=== PATIENT | female | born 1935 | race Caucasian/White ===

== ENCOUNTER 2016-09-21 07:21 | Day surgery (SDC) | payer MEDICARE, BC ==
--- OUTSIDE RECORDS SUMMARY | 2016-09-21 07:25 | XMS REPORT | Continuity of Care Document ---
:1935 Author Organization [facility] ([facility]) Address [address] [place] [address] Phone [phone] Care Team Providers Name Role Phone Jesse Rinaldi Primary Care Provider [phone] Source Comments This disclosure is being made pursuant to the Care Everywhere program, applicable federal and state laws, and may not contain all informaitonavailable regarding this patient.[facility] ([facility]) Active Allergies and Adverse Reactions Allergen Noted Date Severity Reactions Comments Celecoxib 01/18/2011 Unknown Cimetidine 01/18/2011 Unknown Ketorolac Tromethamine 01/18/2011 Unknown Levofloxacin 01/18/2011 Unknown Omeprazole Magnesium 01/18/2011 Unknown Rabeprazole 01/18/2011 Unknown Rofecoxib 01/18/2011 Unknown Sulfa (Sulfonamide Antibiotics) 01/18/2011 Rash Valdecoxib 01/18/2011 Unknown Current Medications Prescription Sig. Disp. Refills Start Date End Date Status alprazolam 0.5 mg Take 0.5 mg by Active dissolvable tablet mouth 4 times daily as needed. Calcium-Cholecalciferol, Take 1 Tab by Active D3, (CALCIUM 600 + D,3,) mouth daily. 600 mg(1,500mg) -200 unit Tab atorvastatin (LIPITOR) 10 Take 10 mg by Active mg tablet mouth daily. Vit C-Vit Take 1 Cap by Active I-Vyowty-Fmc-OM-3 mouth daily. (OCUVITE) 196-11-4-150 fd-jkwr-ky-mg Cap pantoprazole 40 mg EC Take 20 mg by Active tablet mouth daily. acetaminophen (TYLENOL Take 1,000 mg by Active EXTRA STRENGTH) 500 mg mouth every 6 tablet hours as needed. ascorbic acid (VITAMIN C) Take 250 mg by Active 250 mg tablet mouth 2 times daily. Active Problems Problem Noted Date UTI (lower urinary tract infection) 01/20/2011 Social History Tobacco Use Types Packs/Day Years Used Date Former Smoker Cigarettes Smokeless Tobacco: Never Used Alcohol Use Drinks/Week oz/Week Comments Yes Rare alcohol intake. Last Filed Vital Signs Vital Sign Reading Time Taken Blood Pressure 125/58 09/27/2012 1:51 PM CDT Pulse 72 09/27/2012 1:51 PM CDT Temperature 36.6 C (97.8 F) 09/27/2012 1:51 PM CDT Respiratory Rate 18 09/27/2012 1:51 PM CDT Height 1.575 m (5' 2") 09/27/2012 1:51 PM CDT Weight 65.772 kg (145 lb) 09/27/2012 1:51 PM CDT Body Mass Index 26.51 09/27/2012 1:51 PM CDT Oxygen Saturation 97% 03/22/2012 1:00 PM CDT Plan of Care Health Maintenance Due Date Last Done Comments Hepatitis B Vaccine (1 of 3 - Primary Series) 1935 Tdap Vaccine 1945 Lipid Disorder Screening 1952 Td Vaccine 1953 Colonoscopy 08/05/1984 Zoster Vaccine 1994 Osteoporosis Screening (DXA Bone Density) 08/07/1999 Pneumococcal Vaccine (1 of 2 - PCV13) 08/07/1999 Influenza Vaccine: Seasonal (#1) 12/29/2015 Results from Last 3 Months Not on file
--- NOTE | 2016-09-21 07:53 | OR ---
Anesthesia Pre Procedure Eval Pre Procedure Evaluation: Last Vital Signs Temp 36.3 C L 09/21/16 07:38 Pulse 67 09/21/16 07:38 Resp 16 09/21/16 07:38 BP 123/82 09/21/16 07:38 Pulse Ox 94 09/21/16 07:38 PRE PROCEDURE EVALUATION:: DATE: 09/21/2016 TIME: 12 26 INDICATIONS: Radicular low back pain. Multilevel bulging disc PAST MEDICAL HISTORY: Previous epidural steroid injection in March 2016. That injection helped the patient's pain up until about 2 weeks ago. EXAM: Lungs clear and equal. Heart rate regular. Patient complains of radicular back pain with pain radiating into her right hip and down into her right leg. She has no left-sided involvement. ASSESSMENT OF MEDICAL STATUS: Procedure risks and benefits were explained to and accepted by the patient. No contraindication epidural injection. PLANNED PROCEDURE : Fluoroscopy-guided epidural injection at L5-S1 Home Medications: HOME MEDICATIONS Atorvastatin Calcium [Lipitor] 10 mg PO DAILY 08/03/12 [Last Taken 12/28/15] Beta-Carotene(A) W-C , E/Min [Ocuvite] 1 tab PO DAILY 08/03/12 [Last Taken Unknown] Dexlansoprazole [Dexilant] 60 mg PO DAILY 06/09/15 [Last Taken 12/29/15] Simethicone [Phazyme] 180 mg PO PRN PRN 06/09/15 [Last Taken Unknown] ALPRAZolam [Xanax] 0.25 mg PO QID PRN 12/22/15 [Last Taken Unknown] Acetaminophen [Tylenol] 1,000 mg PO Q6H PRN 12/22/15 [Last Taken Unknown] Ascorbic Acid [Vitamin C] 500 mg PO DAILY 12/22/15 [Last Taken 12/28/15] Calcium Carbonate/Vitamin D3 [Calcium 600 + Vit D3 Caplet] 1 each PO TID [Last Taken 12/28/15]
[2016-09-21] MEDS ORDERED: IOPAMIDOL 20 ML VIAL IJ ONE (08:09)
[2016-09-21] MEDS ORDERED: DEXAMETHASONE SOD PHOSPHATE 10 MG/ML VIAL IJ ONE (08:10)
[2016-09-21] MEDS ORDERED: LIDOCAINE HCL/PF 5 ML VIAL IJ ONE (08:10)
--- NOTE | 2016-09-21 08:20 | OR ---
Anesthesia Procedure Note - Anesthesia Procedure Note Narrative: Vital Signs - Last Taken Temp 36.3 C L 09/21/16 07:38 Pulse 67 09/21/16 07:38 Resp 16 09/21/16 07:38 BP 123/82 09/21/16 07:38 Pulse Ox 94 09/21/16 07:38 09/21/16 08:15 ANESTHESIA PROCEDURE NOTE Date of Procedure: 09/21/2016 Time of procedure: 804. Performed by: Arnulfo Carrasco CRNA Creative Services Intern: None. Preprocedure diagnosis: Radicular low back pain bulging disc at L5-S1. Post procedure diagnosis: Same. Procedure: Epidural Steroid Injection at L5-S1. Indications: Radicular low back pain. Findings: See below. Details of the procedure: The patient was brought back to operating room #4. The patient was then placed in the prone position. Back was prepped with DuraPrep. Patient was then draped in sterile fashion. Lidocaine 1% was infiltrated to the skin and subcutaneous tissues at the level of the L5-S1 interspace. The epidural space was identified using a 20-gauge Tuohy needle with [id number] technique and fluoroscopic guidance. A total of 3 mL of Isovue-200 contrast dye was injected to confirm needle placement in first the lateral and then AP positions. Dexamethasone 10 mg + 5 mL of 1% preservative-free lidocaine was administered to the epidural space after negative aspiration for blood and CSF. The Tuohy needle was removed intact. A Band-Aid was applied to the patient's back. The patient was then placed in a supine position for 5 minutes before returning to the ambulatory surgical unit. A total of 34.1 seconds of fluoroscopy time was used along with 12.11 m/gy or. EBL: Minimal. Fluids: N/A. Specimen: N/A. Post procedure condition: The patient tolerated the procedure well. No complications were noted. Thank you for this consultation. Arnulfo Carrasco CRNA
[2016-09-21 08:55] VITALS: BP 142/75
== END 2016-09-21 07:22 | disposition home or self-care (01) ==
LOC: SUR 07:21
PROVIDERS: ATTEND Allergy & Immunology
PROC: 3E0S3BZ Introduction of Anesthetic Agent into Epidural Space, Percutaneous Approach (ICD-10-PCS; 2016-09-21)
PROC: 3E0S33Z Introduction of Anti-inflammatory into Epidural Space, Percutaneous Approach (ICD-10-PCS; principal; 2016-09-21 08:00)
DX: M51.27 Other intervertebral disc displacement, lumbosacral region (principal); Z68.26 Body mass index [BMI] 26.0-26.9, adult

== ENCOUNTER 2016-12-28 07:22 | Day surgery (SDC) | payer MEDICARE, BC ==
--- NOTE | 2016-12-28 07:53 | OR ---
Anesthesia Pre Procedure Eval Date of Service: 12/28/16 Pre Procedure Evaluation: Last Vital Signs Temp 36.5 C 12/28/16 07:32 Pulse 75 12/28/16 07:32 Resp 14 12/28/16 07:32 BP 124/74 12/28/16 07:32 Pulse Ox 94 12/28/16 07:32 Anesthesia Pre Procedure Evaluation DATE: 12/28/2016 TIME: 45 INDICATIONS: Low back pain and bilateral radicular pain, right greater than left. Degenerative disc disease and spinal stenosis. PAST MEDICAL HISTORY: Ms. Hernandez is had a long history of low back and radicular pain, generally the right radicular pain is the most troublesome. She has had trouble with anti-inflammatory medications by mouth however has tried multiple medications which did not help the current issue. She has had epidurals in the past with good relief, her most recent one was in August of this year. Of note she and her have been traveling quite a bit in relation to caring for their daughter is recovering from cancer therapies. I discussed with him the importance of taking frequent breaks on her trips and to pay close attention to what her body is telling her and respond accordingly. We also discussed lumbar support during travel and additional activities of daily living maneuvers which may help stave off aggravation of radicular pain. Her most recent epidural injection apparently worked well until relatively recently and is now at the level of pain as she was prior to the previous injection. History of GERD: Yes, she is treated accordingly. History of smoking: No Smoked prior to procedure: No Counseled on smoking day of procedure: Not applicable History of sleep apnea: No Treated for ASHKAN: No Counseled on risks of untreated ASHKAN nonapplicable EXAM: Heart S1-S2 regular; lungs clear bilaterally ASSESSMENT OF MEDICAL STATUS: Appropriate candidate for epidural injection PLANNED PROCEDURE: Lumbar epidural steroid injection. Home Medications: HOME MEDICATIONS Atorvastatin Calcium [Lipitor] 10 mg PO DAILY 08/03/12 [Last Taken 12/28/15] Beta-Carotene(A) W-C , E/Min [Ocuvite] 1 tab PO DAILY 08/03/12 [Last Taken Unknown] Dexlansoprazole [Dexilant] 60 mg PO DAILY 06/09/15 [Last Taken 12/29/15] Simethicone [Phazyme] 180 mg PO PRN PRN 06/09/15 [Last Taken Unknown] ALPRAZolam [Xanax] 0.25 mg PO QID PRN 12/22/15 [Last Taken Unknown] Ascorbic Acid [Vitamin C] 500 mg PO DAILY 12/22/15 [Last Taken 12/28/15] Acetaminophen [Tylenol] 1,000 mg PO Q6H PRN 12/20/16 [Last Taken Unknown] Calcium Carbonate/Vitamin D3 [Calcium 600 + Vit D 200 Tablet] 1 each PO DAILY [Last Taken Unknown]
[2016-12-28] MEDS ORDERED: IOPAMIDOL 20 ML VIAL IJ ONE (08:15)
[2016-12-28] MEDS ORDERED: DEXAMETHASONE SOD PHOSPHATE 10 MG/ML VIAL IJ ONE (08:15)
[2016-12-28] MEDS ORDERED: LIDOCAINE HCL/PF 5 ML VIAL IJ ONE (08:15)
--- NOTE | 2016-12-28 08:33 | OR ---
Anesthesia Procedure Note - Anesthesia Procedure Note Date of Service: 12/28/16 Narrative: Vital Signs - Last Taken Temp 36.5 C 12/28/16 07:32 Pulse 72 12/28/16 08:20 Resp 16 12/28/16 08:20 BP 149/77 12/28/16 08:20 Pulse Ox 97 12/28/16 08:20 O2 Oxygen Delivery Method Room Air 12/28/16 08:30 ANESTHESIA PROCEDURE NOTE Date of Procedure: 12/28/2016 Time of procedure: 8:10 AM. Performed by: Sumeet De La Rosa CRNA, DICTAPHONE OPERATOR, MSN Membership Coordinator: Fariha Mack RN. Preprocedure diagnosis: Low back and bilateral radicular pain, right greater than left, spinal stenosis degenerative disc disease. Post procedure diagnosis: Same. Procedure: Epidural Steroid Injection L5-S1 right. Indications: Right radicular pain. Findings: See below. Details of the procedure: After the MRI report and films were reviewed, the patient was interviewed where risks and the procedure were explained. [facility] and was placed in the prone position. The back was prepped with DuraPrep and draped in a sterile fashion. The lumbar area was identified under fluoroscopy and the L5-S1 space was localized with 1% lidocaine solution. The epidural space was identified using loss of resistance technique using a #20-gauge Touhy needle. 1 mL of Isovue was injected while the C-arm was positioned in the lateral orientation. The C-arm was then readjusted to an AP view and Isovue 200 1 milliliters was injected demonstrating a spread at the affected area. Dexamethasone 10mg and lidocaine 1 % 5 mL was injected, stylette was replaced and the epidural needle removed. A Band-Aid was then applied to the injection site, patient was placed in a supine position for 5 minutes then returned to ASU with good relief of pain, from a 2/ 10 to 0/10. EBL: None. Energy: 14.7 Seconds, 3.64 mGy Fluids: N/A. Specimen: N/A. Post procedure condition: The patient tolerated the procedure well. No complications were noted. Thank you for this consultation. Sumeet De La Rosa CRNA, MSN, DICTAPHONE OPERATOR
[2016-12-28 09:22] VITALS: BP 132/69
== END 2016-12-28 07:23 | disposition home or self-care (01) ==
LOC: AMB 07:22
PROVIDERS: ATTEND Allergy & Immunology
PROC: 3E0S3BZ Introduction of Anesthetic Agent into Epidural Space, Percutaneous Approach (ICD-10-PCS; 2016-12-28)
PROC: 3E0S33Z Introduction of Anti-inflammatory into Epidural Space, Percutaneous Approach (ICD-10-PCS; principal; 2016-12-28 08:00)
DX: M48.06 Spinal stenosis, lumbar region (principal); M51.36 Other intervertebral disc degeneration, lumbar region